=== PATIENT | male | born 1960 | race Caucasian/White ===

== ENCOUNTER 2016-09-10 16:21 | Inpatient (IN) | payer MEDICAID ==
[~2016-09-10] VITALS: Ht 154.9 cm; Wt 51.0 kg
[2016-09-10 17:13] LABS: Hematocrit 31.3 % (41.0-53.0); Hemoglobin 10.3 g/dL (13.5-17.5); Mean Corpuscular Hemoglobin 30.3 pg (28.0-32.0); Mean Corpuscular Volume 91.7 fL (80.0-100.0); Platelet Count (auto) 322 10^3/uL (140-450); Red Cell Distribution Width 15.6 % (11.6-16.0); SUSPECT VIEW TRANSMISSION; White Blood Cell 16.4 10^3/uL (4.4-10.8)
[2016-09-10 17:16] LABS: Calcium 7.2 mg/dL (8.5-10.1)
[2016-09-10 17:19] LABS: Bilirubin, Total 1.1 mg/dL (0.2-1.0); Total Protein 6.3 g/dL (6.4-8.2)
[2016-09-10 17:21] LABS: Metamyelocytes % 0; Myelocytes % 0; Promyelocytes % 0; Reactive Lymphocytes 0
[2016-09-10 17:25] LABS: Potassium 2.3 mmol/L (3.5-5.1)
[2016-09-10] MEDS ORDERED: SODIUM CHLORIDE 0.9% 1,000 ML IV ONE (17:41)
[2016-09-10] MEDS ORDERED: ALBUTEROL SULF 2.5 MG/0.5ML(0.5%) NEB SOLN HHN ONE (17:45)
[2016-09-10] MEDS ORDERED: methylPREDNISolone SOD SUCC 125 MG/2 ML VL IV ONE (17:45)
[2016-09-10] MEDS ORDERED: IPRATROPIUM BROM 0.5 MG/2.5ML INH SOL HHN ONE (17:45)
[2016-09-10] MEDS ORDERED: POTASSIUM CHL 20MEQ/100ML 100 ML IV ONE (17:45)
[2016-09-10 18:38] LABS: Platelet Estimate Adequate
[2016-09-10] MEDS: SODIUM CHLORIDE 0.9% 1,000 ML IV SCH (20:34)
[2016-09-10] MEDS ORDERED: cefTRIAXone 1GM/50ML D5W 50 ML IV ONE (20:45)
[2016-09-10] MEDS ORDERED: NITROGLYCERIN 0.4 MG SL TAB SL PRN (20:45)
[2016-09-10] MEDS ORDERED: PANTOPRAZOLE SODIUM 40 MG/10 ML VIAL IV ONE (20:45)
[2016-09-10] MEDS ORDERED: MORPHINE SULF INJ 2 MG/ML SYRINGE 1ML IV PRN (20:45)
[2016-09-10 21:16] VITALS: BP 128/66
[2016-09-10] MEDS: ENOXAPARIN SOD 30 MG/0.3 ML SYRINGE SC SCH (21:30)
[2016-09-10 21:36] VITALS: BP 134/83
[2016-09-10] MEDS: ALBUTEROL SULF 2.5 MG/0.5ML(0.5%) NEB SOLN NEB SCH (22:35)
[2016-09-10] MEDS: IPRATROPIUM BROM 0.5 MG/2.5ML INH SOL NEB SCH (22:35)
[2016-09-10 22:38] LABS: Urine Bilirubin Negative (Negative); Urine Blood Negative /uL (Negative); Urine Color Yellow (Yellow); Urine Glucose Normal (Normal); Urine Ketone Negative (Negative); Urine Nitrite Negative (Negative); Urine RBC <1 /hpf (0 - 3); Urine Squamous Epithelial Cell FEW /hpf (<5); Urine pH 5.5 (5.0-8.0)
[2016-09-10 23:17] VITALS: BP 134/83
[2016-09-11] MEDS ORDERED: ZOLPIDEM TARTRATE 5 MG TAB PO PRN (00:15)
[2016-09-11] MEDS: MORPHINE SULF INJ 2 MG/ML SYRINGE 1ML IV PRN ×3 (00:49→16:46)
[2016-09-11] MEDS ORDERED: MAGNESIUM SULFATE 1GM/100ML 100 ML IV ONE (01:44)
[2016-09-11] MEDS: MAGNESIUM SULFATE 1GM/100ML 100 ML IV SCH ×2 (01:50)
[2016-09-11] MEDS: IPRATROPIUM BROM 0.5 MG/2.5ML INH SOL NEB SCH ×5 (02:56→22:29)
[2016-09-11] MEDS: ALBUTEROL SULF 2.5 MG/0.5ML(0.5%) NEB SOLN NEB SCH ×5 (02:56→22:29)
[2016-09-11 05:22] VITALS: BP 117/65
[2016-09-11 05:24] LABS: Hematocrit 27.9 % (41.0-53.0); Hemoglobin 9.3 g/dL (13.5-17.5); Mean Corpuscular Hemoglobin 30.6 pg (28.0-32.0); Mean Corpuscular Hgb Conc. 33.4 g/dL (32.0-36.0); Mean Corpuscular Volume 91.8 fL (80.0-100.0); Mean Platelet Volume 8.1 fL (7.4-10.4); Platelet Count (auto) 285 10^3/uL (140-450); Red Cell Distribution Width 15.4 % (11.6-16.0); White Blood Cell 16.1 10^3/uL (4.4-10.8)
[2016-09-11 05:27] LABS: Metamyelocytes % 0; Myelocytes % 0; Promyelocytes % 0; Reactive Lymphocytes 0
[2016-09-11 05:49] LABS: Albumin 1.8 g/dL (3.4-5.0); BUN/Creatinine Ratio 24.1; Bilirubin, Total 0.7 mg/dL (0.2-1.0); Calcium 6.9 mg/dL (8.5-10.1); Total Protein 5.6 g/dL (6.4-8.2)
[2016-09-11 06:15] LABS: Potassium 2.4 mmol/L (3.5-5.1)
[2016-09-11 06:38] LABS: Platelet Estimate Adequate; RBC Morphology Normal
[2016-09-11 08:00] VITALS: BP 130/68
[2016-09-11] MEDS: POTASSIUM CHL 20MEQ/100ML 100 ML IV SCH ×3 (08:00→11:57)
[2016-09-11] MEDS: SODIUM CHLORIDE 0.9% 1,000 ML IV SCH ×2 (09:04→22:08)
[2016-09-11] MEDS: cefTRIAXone 1GM/50ML D5W 50 ML IV SCH (09:35)
[2016-09-11] MEDS: PANTOPRAZOLE SODIUM 40 MG/10 ML VIAL IV SCH (09:36)
[2016-09-11] MEDS: methylPREDNISolone SOD SUCC 125 MG/2 ML VL IV SCH ×3 (09:36→22:07)
[2016-09-11] MEDS ORDERED: IOHEXOL 300 MG/ML 100ML BOTTLE IJ ONE (11:48)
[2016-09-11 13:00] VITALS: BP 158/86
[2016-09-11 17:00] VITALS: BP 143/73
[2016-09-11 18:44] LABS: Partial Thromboplastin Time 27.5 sec (22.64-33.71)
[2016-09-11 18:45] LABS: INR 1.37 (0.9-1.15)
[2016-09-11 22:00] VITALS: BP 178/96
[2016-09-11] MEDS: POTASSIUM CHL 20 Meq TABLET PO SCH (22:07)
[2016-09-11] MEDS: ENOXAPARIN SOD 30 MG/0.3 ML SYRINGE SC SCH (22:07)
[2016-09-11] MEDS: LORazepam 2MG/ML-1ML VIAL IV PRN (22:08)
[2016-09-12] MEDS: ALBUTEROL SULF 2.5 MG/0.5ML(0.5%) NEB SOLN NEB SCH ×5 (02:29→22:29)
[2016-09-12] MEDS: IPRATROPIUM BROM 0.5 MG/2.5ML INH SOL NEB SCH ×5 (02:29→22:28)
[2016-09-12 05:00] VITALS: BP 147/96
[2016-09-12] MEDS: POTASSIUM CHL 20 Meq TABLET PO SCH ×3 (06:15→20:44)
[2016-09-12 06:44] LABS: Potassium 4.2 mmol/L (3.5-5.1)
[2016-09-12] MEDS: MORPHINE SULF INJ 2 MG/ML SYRINGE 1ML IV PRN (06:46)
[2016-09-12 06:48] LABS: BUN/Creatinine Ratio 26.1; Calcium 7.5 mg/dL (8.5-10.1)
[2016-09-12 08:00] VITALS: BP_SYST 121; BP_SYST 123; BP_DIAS 71
[2016-09-12] MEDS: methylPREDNISolone SOD SUCC 125 MG/2 ML VL IV SCH ×2 (10:59→20:44)
[2016-09-12] MEDS: cefTRIAXone 1GM/50ML D5W 50 ML IV SCH (11:00)
[2016-09-12] MEDS: SODIUM CHLORIDE 0.9% 1,000 ML IV SCH ×2 (11:00→23:25)
[2016-09-12] MEDS: PANTOPRAZOLE SODIUM 40 MG/10 ML VIAL IV SCH (11:00)
[2016-09-12 12:00] VITALS: BP 151/71
[2016-09-12 16:30] VITALS: BP 170/77
[2016-09-12] MEDS: ENOXAPARIN SOD 30 MG/0.3 ML SYRINGE SC SCH (20:43)
[2016-09-12] MEDS: LORazepam 2MG/ML-1ML VIAL IV PRN (20:43)
[2016-09-12 21:50] VITALS: BP 155/80
[2016-09-13] MEDS: MORPHINE SULF INJ 2 MG/ML SYRINGE 1ML IV PRN ×4 (00:27→21:44)
[2016-09-13] MEDS: ALBUTEROL SULF 2.5 MG/0.5ML(0.5%) NEB SOLN NEB SCH ×6 (02:00→22:29)
[2016-09-13] MEDS: IPRATROPIUM BROM 0.5 MG/2.5ML INH SOL NEB SCH ×6 (02:00→22:29)
[2016-09-13 05:40] VITALS: BP 160/99
[2016-09-13] MEDS: POTASSIUM CHL 20 Meq TABLET PO SCH ×3 (06:07→21:43)
[2016-09-13 08:20] VITALS: BP 172/107
[2016-09-13] MEDS: cefTRIAXone 1GM/50ML D5W 50 ML IV SCH (09:09)
[2016-09-13] MEDS ORDERED: FLUMAZENIL 0.1 MG/ML INJ 10ML MDV IV ONE (09:25)
[2016-09-13] MEDS ORDERED: MIDAZOLAM HCL 1MG/1ML-2 ML VIAL ONE (09:25)
[2016-09-13] MEDS ORDERED: NALOXONE HCL 0.4 MG/ML VIAL ONE (09:25)
[2016-09-13] MEDS ORDERED: fentaNYL CITRATE 100 MCG/2 ML VL ONE (09:25)
[2016-09-13] MEDS ORDERED: LIDOCAINE 2%HCL (LOCAL ANESTH.) INJ 20ML MDV ONE (09:27)
[2016-09-13] MEDS: PANTOPRAZOLE SODIUM 40 MG/10 ML VIAL IV SCH (10:00)
[2016-09-13] MEDS: methylPREDNISolone SOD SUCC 125 MG/2 ML VL IV SCH ×2 (10:00→21:42)
[2016-09-13] MEDS ORDERED: GELATIN 1 SPONGE SIZE 50 TOP ONE (10:03)
[2016-09-13] MEDS: SODIUM CHLORIDE 0.9% 1,000 ML IV SCH ×2 (11:21→22:06)
[2016-09-13 11:28] VITALS: BP 163/102
[2016-09-13] MEDS: AZITHROMYCIN 500MG/D5W 250ML 250 ML IV SCH (11:41)
[2016-09-13 16:17] VITALS: BP 145/95
[2016-09-13 20:00] VITALS: BP 122/69
[2016-09-13] MEDS: ENOXAPARIN SOD 30 MG/0.3 ML SYRINGE SC SCH (21:42)
[2016-09-13] MEDS: ONDANSETRON HCL 4 MG/2 ML VIAL IV PRN (21:43)
[2016-09-13] MEDS: NutriHep 250 mL Bottle PO SCH (22:06)
[2016-09-14 01:54] VITALS: BP 122/69
[2016-09-14] MEDS: IPRATROPIUM BROM 0.5 MG/2.5ML INH SOL NEB SCH ×4 (02:47→14:00)
[2016-09-14] MEDS: ALBUTEROL SULF 2.5 MG/0.5ML(0.5%) NEB SOLN NEB SCH ×4 (02:47→14:00)
[2016-09-14] MEDS: ONDANSETRON HCL 4 MG/2 ML VIAL IV PRN (03:41)
[2016-09-14] MEDS: MORPHINE SULF INJ 2 MG/ML SYRINGE 1ML IV PRN ×2 (03:41→11:05)
[2016-09-14 05:00] VITALS: BP 133/73
[2016-09-14] MEDS: POTASSIUM CHL 20 Meq TABLET PO SCH ×2 (06:00→14:00)
[2016-09-14 06:17] LABS: CONDITION AutoValidated; Hematocrit 32.2 % (41.0-53.0); Hemoglobin 10.6 g/dL (13.5-17.5); Mean Corpuscular Hemoglobin 30.2 pg (28.0-32.0); Mean Corpuscular Hgb Conc. 32.9 g/dL (32.0-36.0); Mean Corpuscular Volume 91.9 fL (80.0-100.0); Mean Platelet Volume 8.1 fL (7.4-10.4); Platelet Count (auto) 201 10^3/uL (140-450); SUSPECT SEE PRINTOUT; White Blood Cell 18.9 10^3/uL (4.4-10.8)
[2016-09-14 06:21] LABS: Metamyelocytes % 0; Myelocytes % 0; Promyelocytes % 0; Reactive Lymphocytes 0
[2016-09-14 06:31] LABS: Calcium 7.6 mg/dL (8.5-10.1); Potassium 5.5 mmol/L (3.5-5.1)
[2016-09-14 07:18] LABS: Platelet Estimate Adequate
[2016-09-14 08:19] VITALS: BP 157/89
[2016-09-14] MEDS: cefTRIAXone 1GM/50ML D5W 50 ML IV SCH (08:31)
[2016-09-14] MEDS: AZITHROMYCIN 500MG/D5W 250ML 250 ML IV SCH (09:45)
[2016-09-14] MEDS: methylPREDNISolone SOD SUCC 125 MG/2 ML VL IV SCH (09:45)
[2016-09-14] MEDS: PANTOPRAZOLE SODIUM 40 MG/10 ML VIAL IV SCH (09:45)
[2016-09-14] MEDS: NutriHep 250 mL Bottle PO SCH (09:46)
[2016-09-14 11:00] VITALS: BP 128/81
[2016-09-14] MEDS: SODIUM CHLORIDE 0.9% 1,000 ML IV SCH (12:06)
[2016-09-14] MEDS ORDERED: BUDESONIDE (INHALATION) 0.5 MG/2 ML NEB NEB SCH (14:00)
[2016-09-14 16:26] VITALS: BP 155/98
== END 2016-09-14 16:12 | disposition left against medical advice (07) | DRG 281 ==
LOC: ER 16:26 → TELE 16:27 → TELE-EAST 22:05
PROVIDERS: ADMIT Family Medicine; ATTEND Family Medicine
PROC: 0FB03ZX Excision of Liver, Percutaneous Approach, Diagnostic (ICD-10-PCS; principal; 2016-09-13)
DX: C78.7 Secondary malignant neoplasm of liver and intrahepatic bile duct (principal); J18.9 Pneumonia, unspecified organism; R18.8 Other ascites; E46 Unspecified protein-calorie malnutrition; K74.60 Unspecified cirrhosis of liver; J44.1 Chronic obstructive pulmonary disease with (acute) exacerbation; E87.1 Hypo-osmolality and hyponatremia; E83.42 Hypomagnesemia; K40.90 Unilateral inguinal hernia, without obstruction or gangrene, not specified as recurrent; E87.6 Hypokalemia; D64.9 Anemia, unspecified; E11.9 Type 2 diabetes mellitus without complications; D72.829 Elevated white blood cell count, unspecified; I51.7 Cardiomegaly; I70.0 Atherosclerosis of aorta; Z87.891 Personal history of nicotine dependence; H26.9 Unspecified cataract; Z71.89 Other specified counseling; K86.9 Disease of pancreas, unspecified; Z53.21 Procedure and treatment not carried out due to patient leaving prior to being seen by health care provider
CPT/HCPCS: 10022; 36415; 71010; 74150; 74176; 74178; 76705; 77012; 80048; 80053; 80061; 81001; 82105; 82140; 82962; 83735; 84132; 85007; 85027; 85610; 85730; 86301; 87040; 88307; 88341; 94640; 94761; 96361; 96374; 96375; C9113; J0696; J2250; J2405; J3480

== ENCOUNTER 2016-09-29 22:08 | Emergency (ER) | payer MEDICAID | END 2016-09-30 04:08 | disposition E | LOC: EDBD 22:08 → ER 22:11 | DX: I46.9 Cardiac arrest, cause unspecified (principal); J44.9 Chronic obstructive pulmonary disease, unspecified; Z87.891 Personal history of nicotine dependence | CPT/HCPCS: 92950; 93005; 94002; 99291 ==